=== PATIENT | male | born 1980 | race Caucasian/White ===

== ENCOUNTER 2017-06-27 07:49 | Emergency (ER) | payer SELFPAY ==
[2017-06-27] MEDS ORDERED: Lidocaine 1% 20 ML MDV ONE (08:15)
[2017-06-27] MEDS ORDERED: Triple Antibiotic Oint 1 GM Packet ONE (09:08)
== END 2017-06-27 09:22 | disposition home or self-care (01) ==
LOC: NAV ERS 07:49
DX: S91.312A Laceration without foreign body, left foot, initial encounter (principal); F17.210 Nicotine dependence, cigarettes, uncomplicated; W26.9XXA Contact with unspecified sharp object(s), initial encounter; Y92.009 Unspecified place in unspecified non-institutional (private) residence as the place of occurrence of the external cause
CPT/HCPCS: 12001; J2001